=== PATIENT | male | born 1990 | race Two or more races ===

== ENCOUNTER 2017-11-09 22:06 | Emergency (ER) | payer OTHER ==
[~2017-11-09] VITALS: Ht 157.5 cm; Wt 81.6 kg
[2017-11-09 22:12] VITALS: Ht 157.5 cm; Wt 81.6 kg
[2017-11-09 22:48] VITALS: BP 124/90
== END 2017-11-09 22:48 | disposition other institution (70) ==
LOC: ED 22:06
DX: Z02.89 Encounter for other administrative examinations (principal)

== ENCOUNTER 2018-08-13 10:02 | Emergency (ER) | payer OTHER ==
[~2018-08-13] VITALS: Ht 165.1 cm; Wt 59.0 kg
[2018-08-13 10:09] VITALS: Ht 165.1 cm; Wt 59.0 kg
[2018-08-13 12:28] VITALS: BP 117/72
== END 2018-08-13 12:28 | disposition home or self-care (01) ==
LOC: ED 10:02
DX: R04.0 Epistaxis (principal); F20.9 Schizophrenia, unspecified